=== PATIENT | male | born 1970 | race Caucasian/White ===

== ENCOUNTER 2020-10-11 20:00 | Emergency (ER) | payer SELFPAY ==
[~2020-10-11] VITALS: Ht 182.9 cm; Wt 79.5 kg
[2020-10-11 20:40] VITALS: BP 150/90
--- NOTE | 2020-10-11 21:02 | RAD ---
Exam: Left knee 3 views INDICATION: Injury TECHNIQUE: Frontal, lateral and oblique views of the left knee Comparisons: None FINDINGS: Moderate-sized patellar fusion. Bone mineralization is normal. Joint spaces are well-maintained. Soft tissues are unremarkable. IMPRESSION: Moderate-sized suprapatellar effusion without underlying osseous abnormality identified. Electronically signed by: Bárbara Aguirre MD (10/11/2020 8:59 PM) BUD
[2020-10-11] MEDS ORDERED: HYDR-2761 PO (21:19)
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
== END 2020-10-11 21:33 | disposition home or self-care (01) ==
LOC: ER 20:00
DX: M25.462 Effusion, left knee (principal)
CPT/HCPCS: 29505; 73562; 99283; 99284